=== PATIENT | female | born 1955 | race Caucasian/White ===

== ENCOUNTER → 2018-07-20 | Outpatient (CLI) | payer OTHER | END | disposition home or self-care (01) | LOC: RAH 10:55 | PROVIDERS: ATTEND Nurse Practitioner Adult Health | DX: Z12.31 Encounter for screening mammogram for malignant neoplasm of breast (principal) | CPT/HCPCS: 77067 ==

== ENCOUNTER → 2019-08-12 | Outpatient (CLI) | payer MEDICARE | END | disposition home or self-care (01) | LOC: RAH 09:11 | PROVIDERS: ATTEND Family Medicine | DX: Z12.31 Encounter for screening mammogram for malignant neoplasm of breast (principal) | CPT/HCPCS: 77067 ==

== ENCOUNTER 2019-12-06 21:32 | Observation (INO) | payer MEDICARE ==
[~2019-12-06] VITALS: Ht 149.9 cm; Wt 45.4 kg
[2019-12-06] MEDS ORDERED: ASPIRIN 325MG EC TAB 325 MG TABLET.DR PO ONE (21:48)
[2019-12-06 21:53] LABS: BASOPHILS % (AUTO) 0.8 % (0.0-5.0); HEMATOCRIT 36.1 % (36-48); LYMPHOCYTES % (AUTO) 40.6 % (21.0-51.0); MEAN CORPUSCULAR HEMOGLOBIN 30.5 pg (27.0-33.0); MEAN CORPUSCULAR HGB CONC 34.6 g/dL (32.0-36.0); NEUTROPHILS % (AUTO) 46.2 % (40.0-77.0); PLATELET COUNT (AUTO) 227 K/uL (130-400); WHITE BLOOD COUNT (AUTO) 5.1 K/uL (4.8-10.8)
[2019-12-06 22:02] LABS: CREATININE 0.8 mg/dL (0.5-1.5)
[2019-12-06 22:05] LABS: INR 0.92 (0.85-1.15); PARTIAL THROMBOPLASTIN TIME 24.6 SEC (26.3-35.5)
[2019-12-06 22:06] LABS: ALBUMIN 3.7 g/dL (3.5-5.0); BILIRUBIN,TOTAL 0.3 mg/dL (0.2-1.0); TOTAL PROTEIN, SERUM 6.6 g/dL (6.0-8.3)
[2019-12-06] MEDS ORDERED: NITROGLYCERIN 1GM/1 INCH PACKET TD ONE (23:55)
[2019-12-06] MEDS ORDERED: SUCRALFATE 1 GM TABLET ONE (23:56)
[2019-12-07] MEDS ORDERED: HYDRALAZINE HCL 20 MG/ML VIAL IV PRN (01:30)
[2019-12-07] MEDS ORDERED: MORPHINE SULFATE 2 MG/ML 1ML SYG IVP PRN (01:30)
[2019-12-07] MEDS ORDERED: ACETAMINOPHEN 325 MG TAB PO PRN ×2 (01:30)
[2019-12-07] MEDS ORDERED: ONDANSETRON HCL 4 MG/2 ML VIAL IV PRN (01:30)
[2019-12-07] MEDS ORDERED: ACETAMINOPHEN 325 MG TAB ONE (01:32)
[2019-12-07] MEDS ORDERED: SODIUM CHLORIDE 0.9% 1000ML 1,000 ML IV SCH (01:45)
[2019-12-07] MEDS ORDERED: NITROGLYCERIN 1GM/1 INCH PACKET TD SCH (01:45)
[2019-12-07 02:00] VITALS: BP 147/66
[2019-12-07] MEDS ORDERED: SODIUM CHLORIDE 0.9% 1000ML 1,000 ML IV ONE (02:45)
[2019-12-07] MEDS ORDERED: ONDANSETRON HCL 4 MG/2 ML VIAL ONE (02:47)
[2019-12-07] MEDS ORDERED: MV-M1TAB20 PO (03:34)
[2019-12-07] MEDS ORDERED: FLAX100030 PO (03:34)
[2019-12-07] MEDS ORDERED: ATOR10TA PO (03:34)
[2019-12-07 05:39] LABS: BASOPHILS % (AUTO) 0.7 % (0.0-5.0); HEMATOCRIT 35.1 % (36-48); LYMPHOCYTES % (AUTO) 37.3 % (21.0-51.0); MEAN CORPUSCULAR HGB CONC 34.8 g/dL (32.0-36.0); MEAN CORPUSCULAR VOLUME 89.1 fL (79-99); MONOCYTES % (AUTO) 9.3 % (3.0-13.0); NEUTROPHILS % (AUTO) 50.5 % (40.0-77.0); PLATELET COUNT (AUTO) 221 K/uL (130-400); RED BLOOD CELL COUNT(AUTO) 3.94 MIL/uL (4.00-5.50); RED CELL DISTRIBUTION WIDTH 11.9 % (11.0-15.5); WHITE BLOOD COUNT (AUTO) 4.6 K/uL (4.8-10.8)
[2019-12-07 05:52] LABS: HEMOGLOBIN A1C 5.4 % (4.0-6.0)
[2019-12-07 06:01] LABS: ALANINE AMINOTRANSFERASE 22 U/L (12-78); ALBUMIN 3.3 g/dL (3.5-5.0); ASPARTATE AMINOTRANSFERASE 20 U/L (10-37); BILIRUBIN,TOTAL 0.4 mg/dL (0.2-1.0); CARBON DIOXIDE 31 mmol/L (21-32); CHLORIDE 104 mmol/L (101-111); CHOLESTEROL 157 mg/dL (<200); CREATINE KINASE, TOTAL 39 U/L (21-232); CREATININE 0.9 mg/dL (0.5-1.5); GLOMERULAR FILTR. RATE CALC 67 mL/min (>60); GLUCOSE,RANDOM 94 mg/dL (70-105); HDL CHOLESTEROL 81 mg/dL (35-85); LDL DIRECT 74 mg/dL (0-99); MYOGLOBIN 34 ng/mL (10-92); POTASSIUM 4.1 mmol/L (3.5-5.1); SODIUM SERUM 139 mmol/L (136-145); TOTAL PROTEIN, SERUM 5.8 g/dL (6.0-8.3); TRIGLYCERIDES 32 mg/dL (30-200); TROPONIN I < 0.04 ng/mL (0.00-0.06); UREA NITROGEN, BLOOD 9 mg/dL (7-18)
[2019-12-07 07:00] VITALS: BP 101/56
[2019-12-07] MEDS: NITROGLYCERIN 1GM/1 INCH PACKET TD SCH ×2 (09:33→16:15)
[2019-12-07] MEDS: FAMOTIDINE/PF 20 MG/2 ML VIAL IV SCH ×2 (09:33→20:35)
[2019-12-07] MEDS: HEPARIN SODIUM 5000UNIT/ML 1ML VIAL SQ SCH ×3 (09:34→21:00)
[2019-12-07 11:00] VITALS: BP 114/66
[2019-12-07] MEDS ORDERED: REGADENOSON 0.4 MG/5 ML PF SYG IVP SCH (11:45)
[2019-12-07] MEDS: ASPIRIN 81 MG EC TAB PO SCH (16:18)
--- NOTE | 2019-12-07 16:34 | NUR ---
cm note met with patient and states resides at home with spouse, independent with adls and ambulation. no dme. dc plan is back to home. pt drives. states no dc needs. Addendum: 12/07/19 at 1636 by CHAR MOELLER CM Amended: Links added.
[2019-12-07 17:30] VITALS: BP 137/81
--- NOTE | 2019-12-07 18:50 | NUR ---
PATIENT COMPLETED A CHEMICAL STRESS TEST TODAY. RESULTS ARE STILL PENDING. PATIENT PERSISTS WITH CONSTANT PRESSURE-LIKE CHEST PAIN, 3-4/[address] ORTEGA IS AWARE OF THIS. TROP-I WERE NEGATIVE X 3. PT IS ON SCHEDULED NITRO-PASTE. WILL CONTINUE TO MONITOR.
[2019-12-07 19:30] VITALS: BP 128/82
[2019-12-07 23:05] VITALS: BP 142/83
[2019-12-08] MEDS: NITROGLYCERIN 1GM/1 INCH PACKET TD SCH ×2 (01:08→08:15)
[2019-12-08 04:00] VITALS: BP 109/59
[2019-12-08 07:47] VITALS: BP 100/61
--- NOTE | 2019-12-08 08:00 | NUR ---
PT AAO X 3 REVIEW CARE, CALL LIGHT IN REACH , NO C/O OF CHEST PAIN, WAITING FOR RESULTS , OF THE S TRESS TEST .
[2019-12-08] MEDS: HEPARIN SODIUM 5000UNIT/ML 1ML VIAL SQ SCH (09:00)
--- NOTE | 2019-12-08 11:10 | NUR ---
DR. ORTEGA HERE AND UPDATE OF STRESS TEST ,RESULTS TO PT . NORMAL .,, WITH ORDERS FOR DISCHARGE . .
[2019-12-08] MEDS: FAMOTIDINE/PF 20 MG/2 ML VIAL IV SCH (11:18)
[2019-12-08] MEDS: ASPIRIN 81 MG EC TAB PO SCH (11:18)
[2019-12-08 11:21] VITALS: BP 145/73
--- NOTE | 2019-12-08 12:30 | NUR ---
DISCHARGE SUMMARY . AND QUESTIONS REVIEW.. SL TO HER RT HAND , NOTED NO HEMATOMA A SM DRSG APPLICATION ON, AND SL TO HE RAC DC , NOTED NO REDNESS OR HEMATOMA, A SM DRSG APPLICATION ON,, . PT . DENIES ANY CHEST PAIN,
== END 2019-12-08 12:10 | disposition home or self-care (01) ==
LOC: EDH 21:32 → INTOOBSV 12-07 01:23 → EDHIP 12-07 01:23 → 4AH 12-07 01:58
PROVIDERS: ADMIT Family Medicine; ATTEND Family Medicine
DX: I24.9 Acute ischemic heart disease, unspecified (principal); R07.2 Precordial pain; E78.00 Pure hypercholesterolemia, unspecified; E78.5 Hyperlipidemia, unspecified; K21.9 Gastro-esophageal reflux disease without esophagitis; Z88.5 Allergy status to narcotic agent; Z87.891 Personal history of nicotine dependence
CPT/HCPCS: 36415 ×2; 71046; 78452; 80053 ×2; 80061; 82550 ×2; 83036; 83690; 83874; 84443; 84484 ×3; 85025 ×2; 85610; 85730; 86677; 93005 ×2; 93017; 96372; 96374; 96376 ×2; 99285; A9505; G0378 ×24; J1644 ×2; J2405; J2785; J3490 ×3; J7030

== ENCOUNTER → 2020-11-02 | Outpatient (CLI) | payer MEDICARE ==
[~2020-11-02] MED LIST: ATOR10TA PO; FLAX100030 PO; MV-M1TAB20 PO
== END | disposition home or self-care (01) ==
LOC: RAH 10:21
PROVIDERS: ATTEND Family Medicine
DX: Z12.31 Encounter for screening mammogram for malignant neoplasm of breast (principal)
CPT/HCPCS: 77067

== ENCOUNTER 2021-04-08 10:44 | Day surgery (SDC) | payer MEDICARE ==
[2021-04-08] VITALS (8 sets, daily range): BP systolic 124–177; BP diastolic 69–84
[~2021-04-08] VITALS: Ht 149.9 cm; Wt 43.1 kg
[~2021-04-08 10:44] MED LIST changes: +ASCO250T22 PO; +CALC-1009 PO; +UBID200C18 PO; +VITA1CAP85 PO
[2021-04-08] MEDS ORDERED: 0.9%NACL 1000ML 1,000 ML IV ONE (11:50)
[2021-04-08] MEDS ORDERED: PROPOFOL 10 MG/ML 20ML VIAL IV ONE (12:26)
[2021-04-08] MEDS ORDERED: LIDOCAINE HCL 1% 20 ML VIAL ONE (12:27)
== END 2021-04-08 13:40 | disposition home or self-care (01) ==
LOC: DAH 10:44 → ENDO 10:44
PROVIDERS: ATTEND Internal Medicine Gastroenterology
DX: R93.3 Abnormal findings on diagnostic imaging of other parts of digestive tract (principal); Z20.822 Contact with and (suspected) exposure to COVID-19; I10 Essential (primary) hypertension; E78.00 Pure hypercholesterolemia, unspecified; E78.5 Hyperlipidemia, unspecified; M81.0 Age-related osteoporosis without current pathological fracture; Z90.710 Acquired absence of both cervix and uterus; Z90.49 Acquired absence of other specified parts of digestive tract; Z98.891 History of uterine scar from previous surgery; Z88.6 Allergy status to analgesic agent; Z88.8 Allergy status to other drugs, medicaments and biological substances
CPT/HCPCS: 43259; 87635; A4215 ×2; A4221; A4222; A4223; A4606; A4620; A4657; A4663; C9803; J2704; J7030

== ENCOUNTER → 2021-11-03 | Outpatient (CLI) | payer MEDICARE | END | disposition home or self-care (01) | LOC: RAH 09:21 | PROVIDERS: ATTEND Physician Assistant Medical | DX: Z12.31 Encounter for screening mammogram for malignant neoplasm of breast (principal) | CPT/HCPCS: 77067 ==

== ENCOUNTER → 2022-09-16 | Outpatient (CLI) | payer MEDICARE | END | disposition home or self-care (01) | LOC: SLP 20:32 | PROVIDERS: ATTEND Family Medicine | DX: G47.33 Obstructive sleep apnea (adult) (pediatric) (principal); R06.83 Snoring; I10 Essential (primary) hypertension | CPT/HCPCS: 95810 ==

== ENCOUNTER → 2022-10-03 | Outpatient (CLI) | payer MEDICARE | END | disposition home or self-care (01) | LOC: SLP 20:30 | PROVIDERS: ATTEND Family Medicine | DX: G47.33 Obstructive sleep apnea (adult) (pediatric) (principal) | CPT/HCPCS: 95811 ==

== ENCOUNTER → 2022-11-04 | Outpatient (CLI) | payer MEDICARE | END | disposition home or self-care (01) | LOC: RAH 10:00 | PROVIDERS: ATTEND Family Medicine | DX: Z12.31 Encounter for screening mammogram for malignant neoplasm of breast (principal) | CPT/HCPCS: 77067 ==

== ENCOUNTER → 2022-11-05 | Outpatient (CLI) | payer OTHER | END | disposition home or self-care (01) | LOC: OIH 09:01 | PROVIDERS: ATTEND Family Medicine | DX: Z13.6 Encounter for screening for cardiovascular disorders (principal); R93.1 Abnormal findings on diagnostic imaging of heart and coronary circulation | CPT/HCPCS: 75571 ==

== ENCOUNTER → 2023-11-15 | Outpatient (CLI) | payer MEDICARE | END | disposition home or self-care (01) | LOC: RAH 11:02 | PROVIDERS: ATTEND Family Medicine | DX: Z12.31 Encounter for screening mammogram for malignant neoplasm of breast (principal); R92.333 Mammographic heterogeneous density, bilateral breasts | CPT/HCPCS: 77067 ==

== ENCOUNTER → 2024-08-01 | Outpatient (CLI) | payer MEDICARE ==
[~2024-08-01] MED LIST changes: +ASCO-515 PO; -ASCO250T22 PO
--- NOTE | 2024-08-01 10:15 | HMCIMG ---
Exam Type: MRI knee without gadolinium, right Clinical Information: Pain Comparison: None Technique: MRI of the knee was done with triplane localizer, axial T2 as well as sagittal proton density T2, T1, and fat-saturated T2. In addition, coronal T1 and coronal fat-saturated spin-echo sequences are available for review. FINDINGS: MRI of the knee was done with triplane localizer, axial T2 as well as sagittal proton density T2, T1, and fat-saturated T2. In addition, coronal T1 and coronal fat-saturated spin-echo sequences are available for review. FINDINGS: The examination is unremarkable except for the presence of a Bowens's cyst measuring 19 mm . Specifically, no meniscal pathology is seen. No effusions are identified. No bony abnormalities are seen. The articular cartilage is preserved. The cruciate and collateral ligaments are intact. No periarticular soft tissue abnormalities are seen. There are no other gross abnormalities. IMPRESSION: 1. NORMAL MRI OF THE KNEE EXCEPT FOR THE PRESENCE OF A BOWENS'S CYST.
== END | disposition home or self-care (01) ==
LOC: RAH 07:55
PROVIDERS: ATTEND Internal Medicine
DX: M71.21 Synovial cyst of popliteal space [Baker], right knee (principal); M25.561 Pain in right knee
CPT/HCPCS: 73721